=== PATIENT | female | born 1990 | race Caucasian/White ===

== ENCOUNTER 2016-06-19 00:13 | Emergency (ER) | payer OTHER ==
[~2016-06-19] VITALS: Ht 167.6 cm; Wt 87.5 kg
[2016-06-19 00:18] VITALS: BP 148/87; PULSE 78; RESP 16; TEMP 98.2; O2SAT 100
--- NOTE | 2016-06-19 00:20 | NUR ---
ER at bedside examining patient.
--- NOTE | 2016-06-19 00:20 | NUR ---
Placed in room 08 . Placed on secured entrance monitor, blood pressure machine and pulse oximeter. To gown for exam. Side rails up. Report given to KAREEM Campoverde.
--- NOTE | 2016-06-19 00:22 | NUR ---
Pt brought in by mother in stable condition. Pt c/o middle back pain 09/02 that began yesterday. Pt stated that she is currently on antibiotics for a bladder infection. Pt stated that she does have a hx of kidney stones. +n/v x1 this evening. -fever -sob -chest pain. No acute distress noted at this time, will continue to monitor
[2016-06-19] MEDS ORDERED: NACL 0.9% 1,000 ML IV ONE (00:26)
[2016-06-19] MEDS ORDERED: KETOROLAC TROMETHAMINE 30 MG VIAL IVP ONE (00:30)
[2016-06-19] MEDS ORDERED: MORPHINE 4 MG/ML INJ. SYRINGE IVP ONE (00:30)
[2016-06-19 01:02] LABS: BASOPHILS # (AUTO) 0.1 K/uL (0.0-0.2); BASOPHILS % (AUTO) 0.8 % (0.0-2.0); EOSINOPHILS # (AUTO) 0.1 K/uL (0.0-0.4); EOSINOPHILS % (AUTO) 1.2 % (0.0-4.0); HEMOGLOBIN 12.9 g/dL (12.0-16.0); LYMPHOCYTES # (AUTO) 3.2 K/uL (1.0-5.5); LYMPHOCYTES % (AUTO) 36.6 % (20.5-51.5); MEAN CORPUSCULAR HEMOGLOBIN 27 pg (27-31); MEAN CORPUSCULAR HGB CONC 33 % (32-36); MEAN CORPUSCULAR VOLUME 81 fL (79.0-98.0); MONOCYTES # (AUTO) 0.6 K/uL (0.0-1.0); MONOCYTES % (AUTO) 6.9 % (1.7-9.3); NEUTROPHILS # (AUTO) 4.6 K/uL (1.8-7.7); NEUTROPHILS % (AUTO) 54.5 % (40.0-70.0); PLATELET COUNT (AUTO) 268 K/uL (130-430); RED BLOOD CELL COUNT(AUTO) 4.79 MIL/uL (4.2-6.2); RED CELL DISTRIBUTION WIDTH 12.3 % (9.0-15.0); WHITE BLOOD COUNT (AUTO) 8.6 K/uL (4.8-10.8)
[2016-06-19] MEDS ORDERED: ONDANSETRON HCL 4 MG/2 ML VIAL ONE (01:03)
[2016-06-19 01:07] LABS: BILIRUBIN,URINE NEGATIVE (NEGATIVE); BLOOD, URINE NEGATIVE (NEGATIVE); COLOR,URINE YELLOW (YELLOW); GLUCOSE,URINE NEGATIVE (NEGATIVE); KETONES,URINE NEGATIVE (NEGATIVE); LEUKOCYTE ESTERASE ,URINE NEGATIVE (NEGATIVE); NITRITE, URINE NEGATIVE (NEGATIVE); PH,URINE 5.5 (5.0-8.0); PROTEIN URINE NEGATIVE (NEGATIVE); UROBILINOGEN,URINE 0.2 (0.2-1.0)
[2016-06-19 01:10] LABS: CLARITY/URINE SLIGHTLY CLOUDY (CLEAR)
[2016-06-19 01:10] LABS: CALCIUM 8.6 mg/dL (8.4-11.0); CREATININE 0.86 mg/dL (0.55-1.30); POTASSIUM 3.7 mmol/L (3.5-5.1)
[2016-06-19 01:12] LABS: BACTERIA,URINE MODERATE /HPF (None Seen); RBC,URINE 0-3 /HPF (0-3)
[2016-06-19 01:13] LABS: MUCUS,URINE None Seen /LPF (None Seen)
[2016-06-19 01:15] LABS: ALBUMIN 3.7 g/dL (3.4-4.8); TOTAL BILIRUBIN 0.1 mg/dL (0.0-1.0); TOTAL PROTEIN, SERUM 7.7 g/dL (6.4-8.3)
[2016-06-19] MEDS ORDERED: ONDANSETRON HCL 4 MG/2 ML VIAL IVP ONE (01:30)
[2016-06-19] MEDS ORDERED: cefTRIAXone 1 GM IVPB PREMIX 50 ML IV ONE (02:45)
[2016-06-19 03:22] VITALS: BP 132/81; PULSE 78; RESP 16; TEMP 98.2; O2SAT 100
--- NOTE | 2016-06-19 03:22 | NUR ---
Patient given written and verbal discharge instructions and verbalizes understanding. ER MD Abraham discussed with patient the results and treatment provided. Patient in stable condition. ID arm band removed. IV catheter removed intact and dressing applied, no active bleeding. Rx of Naprosyn given. Patient educated on pain management and to follow up with PMD. Pain Scale 0/10. Opportunity for questions provided and answered.
== END 2016-06-19 03:22 | disposition home or self-care (01) ==
LOC: SED 00:13
DX: N39.0 Urinary tract infection, site not specified (principal); J45.909 Unspecified asthma, uncomplicated
CPT/HCPCS: 36415; 74176; 80053; 81000; 81025; 85025; 87086; 96361; 96365; 96375; 99285; J0696; J1885; J2270; J2405; J7030